=== PATIENT | male | born 1970 | race Two or more races ===

== ENCOUNTER 2021-05-23 00:40 | Emergency (ER) | payer OTHER ==
[~2021-05-23] VITALS: Ht 165.1 cm; Wt 65.0 kg
[2021-05-23] MEDS ORDERED: SODIUM CHLORIDE 0.9% 1,000 ML IV ONE (02:15)
[2021-05-23 02:36] LABS: BASOPHILS % 0.5 % (0.0-2.0); EOSINOPHILS % 1.3 % (0.0-5.0); HEMOGLOBIN. 13.1 g/dL (14.0-18.0); LYMPHOCYTES % 35.1 % (20.0-50.0); MEAN CORPUSCULAR HEMOGLOBIN 32.1 pg (28.0-32.0); MEAN PLATELET VOLUME 7.9 fl (7.4-10.4); MONOCYTES % 6.4 % (2.0-8.0); NEUTROPHILS % 56.7 % (40.0-76.0); PLATELET 249 x1000/uL (130-400); RED BLOOD CELL COUNT 4.06 mill/uL (4.7-6.1); RED CELL DISTRIBUTION WIDTH 12.7 % (11.6-14.6)
[2021-05-23 02:42] LABS: CHLORIDE 106 mEq/L (98-107)
[2021-05-23] MEDS ORDERED: ASPIRIN 325MG TABLET PO ONE (06:00)
[2021-05-23] MEDS ORDERED: IOHEXOL-350 100 ML BOTTLE ONE (06:26)
[2021-05-23 07:40] VITALS: BP 102/67
== END 2021-05-23 08:18 | disposition short-term general hospital (02) ==
LOC: ER 00:40
DX: R07.89 Other chest pain (principal)
CPT/HCPCS: 36415; 71045; 71275; 80053; 83880; 84484; 85025; 85379; 96360; 99285; J7030; Q9967